=== PATIENT | female | born 1990 | race Caucasian/White ===

== ENCOUNTER 2018-11-16 13:52 | Emergency (ER) | payer OTHER, MEDICAID, SELFPAY ==
[2018-11-16] VITALS (10 sets, daily range): BP systolic 113–136; BP diastolic 67–90; PULSE 66–98; RESP 13–23; TEMP 37.1; O2SAT 97–100; BMI 22.7
--- NOTE | 2018-11-16 14:47 | ED.CHESTPAIN ---
HPI - Chest Pain General Chief Complaint: Chest Pain Stated Complaint: chest pain since 8 am/on chemo since sunday Time Seen by Provider: 11/16/18 14:47 Source: patient Mode of arrival: ambulatory Limitations: no limitations History of Present Illness HPI narrative: Patient is a 28-year-old female currently undergoing treatment for rectal cancer. She is taking a daily oral medication and a infusion every 3 weeks. Her last infusion was 1 week ago. She states that for the past several days in specifically since 0800 hr this morning she has had retrosternal chest pain. She states she has had a constant pain since about 1100 hr but that it has spikes and pain. She states it is sharp. Not worse with palpation or breathing or movement. Has never had anything like this before. States she does have some shortness of breath with exertion. Related Data Home Medications Medication Instructions Recorded Confirmed capecitabine 2,000 mg PO DAILY 11/16/18 11/16/18 ergocalciferol (vitamin D2) 1.25 mg PO QWEEK 11/16/18 11/16/18 [Vitamin D2] prochlorperazine maleate 10 mg PO Q6HR PRN 11/16/18 11/16/18 Allergies Allergy/AdvReac Type Severity Reaction Status Date / Time No Known Drug Allergies Allergy Verified 11/16/18 15:05 Review of Systems Constitutional Reports fatigue, Denies fever(s) and Denies headache(s) ENT Ears, Nose, Mouth, and Throat: Denies dizziness and Denies headache(s) Cardiovascular Reports chest pain, Denies diaphoresis, Denies syncope, Denies edema, Denies irregular heart rhythm, Denies leg edema, Denies palpitations, Reports dyspnea and Reports dyspnea on exertion Respiratory Denies cough, Reports dyspnea, Reports dyspnea on exertion and Denies wheezing Gastrointestinal Gastrointestinal: Denies abdominal pain, Denies nausea and Denies vomiting Genitourinary Denies dysuria Musculoskeletal Denies myalgias and Denies arthralgias Integumentary/Breasts Denies lesions and Denies rash Neurologic Denies dizziness, Denies syncope and Denies headache(s) Endocrine Reports fatigue and Denies palpitations Hematologic/Lymphatic Denies easy bleeding Allergic/Immunologic Denies wheezing PFSH Medical History Rectal cancer (Acute) Social History Smoking Status: Never smoker Exam Initial Vital Signs Initial Vital Signs: Vital Signs Temperature 98.7 F 11/16/18 14:02 Pulse Rate 70 11/16/18 14:02 Respiratory Rate 17 11/16/18 14:02 Blood Pressure 134/84 11/16/18 14:02 Pulse Oximetry 100 11/16/18 14:02 Const General: cooperative, healthy appearing, comfortable, well developed, well groomed and No acute distress Orientation: alert, awake and oriented x3 HENMT Head: normal to inspection and normocephalic Resp Effort & Inspection: no cough, not labored, no stridor, tachypneic, no tripod positioning and no use of accessory muscles Auscultation: clear to auscultation bilaterally Cardio Rate: regular rate Rhythm: regular rhythm Pulses: radial pulses present GI Inspection: non-distended Palpation: soft, No firm and No tender Back/Spine/Pelvis Back: No CVA tenderness Skin Lesions: no lesions Rashes: no rashes Neuro General: alert, awake and oriented x3 Cognition: normal cognition Speech: speech normal Extrem General: normal to inspection and capillary refill normal Course Orders Ordered: ED Orders 11/16/18 14:25 B Type Natriuretic Peptide Stat Basic Metabolic Panel Stat Complete Blood Count AUTO DIFF Stat D Dimer Stat Procalcitonin Stat Troponin I Stat 11/16/18 14:57 XR chest 1V Stat 11/16/18 15:26 CT angio chest PE protocol Stat Discontinued Medications Al Hydrox/Mg Hydrox/Simethicone 20 ml/ Lidocaine HCl 15 ml 0 ml PO NOW ONE Stop: 11/16/18 14:57 Last Admin: 11/16/18 15:06 Dose: 35 ml Sodium Chloride (Normal Saline 0.9%) 1,000 mls @ 1,000 mls/hr IV BOLUS ONE Stop: 11/16/18 16:24 Last Admin: 11/16/18 16:14 Dose: 1,000 mls/hr Morphine Sulfate (Morphine) 4 mg IV NOW ONE Stop: 11/16/18 16:17 Last Admin: 11/16/18 16:18 Dose: 4 mg Ondansetron HCl (Zofran) 4 mg IV NOW ONE Stop: 11/16/18 16:27 Last Admin: 11/16/18 16:26 Dose: 4 mg Vital Signs - 8 hr 11/16/18 14:02 11/16/18 14:40 11/16/18 15:26 Temperature 98.7 F Pulse Rate 70 75 77 Respiratory Rate 17 15 19 Blood Pressure 134/84 Blood Pressure [Left Arm] 129/78 126/81 Pulse Oximetry 100 100 100 11/16/18 16:00 11/16/18 17:08 11/16/18 17:30 Temperature Pulse Rate 98 H 69 66 Respiratory Rate 23 14 19 Blood Pressure Blood Pressure [Left Arm] 129/90 125/67 126/74 Pulse Oximetry 100 99 100 MDM - Chest Pain Lab Data Attestation: I reviewed the patient's lab results. Result diagrams: 11/16/18 14:25 11/16/18 14:25 Lab Results 11/16/18 11/16/18 11/16/18 Range/Units 14:25 14:25 14:25 WBC 9.3 (4.5-11.0) X10^3/uL RBC 4.68 (4.0-5.2) X10^6/uL Hgb 13.2 (12.0-16.0) g/dL Hct 39.4 (36-46) % MCV 84.3 (80-100) fL MCH 28.3 (26-34) PG MCHC 33.6 (30-36) % RDW 12.5 (11.6-14.8) % Plt Count 288 (150-400) X10^3/uL Neut % (Auto) 66.1 (50-75) % Lymph % (Auto) 21.8 L (25-40) % [place] % (Auto) 11.3 (3-14) % Eos % (Auto) 0.2 L (2-4) % Baso % (Auto) 0.6 (0-2) % Neut # (Auto) 6100 (7417-7075) /uL D-Dimer 3082 H (<230) ng/mL Sodium 134 L (137-145) mmol/L Potassium 3.7 (3.4-5.1) mmol/L Chloride 103 (98-107) mmol/L Carbon Dioxide 21 L (22-32) mmol/L BUN 9 (7-17) mg/dL Creatinine 0.50 L (0.52-1.04) mg/dL Estimated GFR > 60.0 (>60) mL/min BUN/Creatinine Ratio 18.0 (6-22) Glucose 113 H (70-100) mg/dL Calcium 8.7 (8.4-10.2) mg/dL Troponin I < 0.012 (0.01-0.034) ng/mL B-Natriuretic Peptide < 100 (<100) Procalcitonin (<0.5) ng/mL 11/16/18 Range/Units 14:25 WBC (4.5-11.0) X10^3/uL RBC (4.0-5.2) X10^6/uL Hgb (12.0-16.0) g/dL Hct (36-46) % MCV (80-100) fL MCH (26-34) PG MCHC (30-36) % RDW (11.6-14.8) % Plt Count (150-400) X10^3/uL Neut % (Auto) (50-75) % Lymph % (Auto) (25-40) % [place] % (Auto) (3-14) % Eos % (Auto) (2-4) % Baso % (Auto) (0-2) % Neut # (Auto) (8540-6412) /uL D-Dimer (<230) ng/mL Sodium (137-145) mmol/L Potassium (3.4-5.1) mmol/L Chloride (98-107) mmol/L Carbon Dioxide (22-32) mmol/L BUN (7-17) mg/dL Creatinine (0.52-1.04) mg/dL Estimated GFR (>60) mL/min BUN/Creatinine Ratio (6-22) Glucose (70-100) mg/dL Calcium (8.4-10.2) mg/dL Troponin I (0.01-0.034) ng/mL B-Natriuretic Peptide (<100) Procalcitonin < 0.05 (<0.5) ng/mL Imaging Data Chest x-ray: Radiologist's impression: PROCEDURE: XR CHEST 1V INDICATIONS: Chest pain TECHNIQUE: One view of the chest was acquired. COMPARISON: None. FINDINGS: Surgical changes and devices: Port-A-Cath in normal position from right sided approach. Lungs and pleura: No pleural effusions or pneumothorax. Lungs are abnormal with a mild prominence of the interstitium but this is in the setting of relatively prominently reduced inspiratory volume.. Mediastinum: Mediastinal contours appear normal. Heart size is normal. Bones and chest wall: No suspicious bony lesions. Overlying soft tissues appear unremarkable. IMPRESSION: Reduced inspiration, Port-A-Cath in normal position. Mild interstitial prominence but this may simply reflect mild atelectasis from reduced inspiration. Dictated by: Sotero Herndon M.D. on 11/16/2018 at 15:53 Approved by: Sotero Herndon M.D. on 11/16/2018 at 15:54 CT scan - chest: Radiologist's impression: PROCEDURE: CT ANGIO CHEST PE PROTOCOL INDICATIONS: Chest pain, shortness of breath, tachycardia TECHNIQUE: After the administration of intravenous contrast, 2 mm thick sections acquired from the pulmonary apices to the posterior costophrenic angles. 3-dimensional maximum intensity projection (MIP) coronal and sagittal reformats were then acquired through the thorax. For radiation dose reduction, the following was used: automated exposure control, adjustment of mA and/or kV according to patient size. COMPARISON: None. FINDINGS: Image quality: Excellent. Pulmonary arteries: Pulmonary arteries are normal in size, and demonstrate no intraluminal filling defects to suggest central pulmonary embolism. Lungs and pleura: Lungs are clear except for atelectasis related to a moderately large right pleural effusion layering posteriorly, simple in appearance and water in radiodensity.. No pleural effusions or pneumothorax. Central and peripheral airways are patent. Mediastinum: Heart size is normal, without pericardial effusion. No mediastinal or hilar adenopathy. Thoracic aorta is normal in caliber and enhancement. Esophagus is normal in caliber, without hiatal hernia. Bones and chest wall: No suspicious bony lesions. Ribs and thoracic spine appear intact throughout. Thyroid gland appears normal. No axillary or supraclavicular adenopathy. A Port-A-Cath from right sided approach extends normally into the superior vena cava and traverses inferiorly into the upper right atrium. Abdomen: Visualized upper abdominal solid organs appear normal in the early arterial phase of enhancement. Moderate ascites is seen within the right and left upper abdomen and no peritoneal masses are seen. Radiodensity of the fluid within the peritoneal space is that of water. Incidental note is made of a right posterior hepatic segment presumed cyst, measuring only approximately 5 mm in diameter best seen on series 4 image 114. IMPRESSION: 1. Water density simple appearing moderately large right pleural effusion. No pulmonary embolus seen. 2. Bilateral moderate collections of peritoneal fluid are seen at the right and left upper abdomen in the small area of the abdomen included on this study. The peritoneal free fluid appears simple in character and water in radiodensity. 3. The Port-A-Cath from right sided approach traverses the superior vena cava and terminates with its inferior tip in the right atrium. Dictated by: Sotero Herndon M.D. on 11/16/2018 at 16:18 Approved by: Sotero Herndon M.D. on 11/16/2018 at 16:24 ECG Data Attestation: I personally reviewed and interpreted this ECG as follows: Prior ECG tracings: not available for review Interpretation: Sinus rhythm Ventricular rate is 68 Normal axis Normal intervals Normal QRS Normal QTC No ST T wave changes MDM Narrative Medical decision making narrative: Patient is tachypneic to the low 20s however not hypoxic. Does have a pleural effusion on the right side which could potentially be the cause of all of her symptoms that she presented with today. I do not feel like she needs an emergent thoracentesis because she is not hypoxic and not in any respiratory distress. Unsure the etiology of this effusion however could be the result of her cancer, recent port placement, recent egg harvesting prior to chemotherapy. Low suspicion for ACS. No findings of pulmonary embolism on the CT scan. EKG is unremarkable. She got minor relief from the GI cocktail. I discussed the case with the on-call staff attorney at the [facility] who agreed with holding on any thoracentesis currently. The on-call oncologist will talk with her primary oncologist regarding the symptoms. I had the discussion with the patient and the family at bedside regarding the lack of definitive diagnosis however we did discuss the pertinent negative findings. Patient was given return precautions. She expressed understanding and agreement with plan. Discharge Plan Departure Patient Disposition: Home Clinical Impression: Pleural effusion Instructions: DI for Pleural Effusion Activity Restrictions/Additional Instructions: The oncologist special education case manager at the [facility] stated that she will contact your oncologist to let her know of the findings today. I do recommend that on Sunday you follow-up with this by calling your oncologist. If your symptoms worsen or you develop any new symptoms specifically worsening problems breathing especially with exerting your self please return to the emergency department for further evaluation. Prescriptions: No Action prochlorperazine maleate 10 mg tablet 10 mg PO Q6HR PRN (Reason: Nausea) RF: 0 ergocalciferol (vitamin D2) [Vitamin D2] 50,000 unit capsule 1.25 mg PO QWEEK RF: 0 capecitabine 500 mg tablet 2,000 mg PO DAILY RF: 0
--- NOTE | 2018-11-16 14:57 | DI.RAD.S_ITS ---
PROCEDURE: XR CHEST 1V INDICATIONS: Chest pain TECHNIQUE: One view of the chest was acquired. COMPARISON: None. FINDINGS: Surgical changes and devices: Port-A-Cath in normal position from right sided approach. Lungs and pleura: No pleural effusions or pneumothorax. Lungs are abnormal with a mild prominence of the interstitium but this is in the setting of relatively prominently reduced inspiratory volume.. Mediastinum: Mediastinal contours appear normal. Heart size is normal. Bones and chest wall: No suspicious bony lesions. Overlying soft tissues appear unremarkable. IMPRESSION: Reduced inspiration, Port-A-Cath in normal position. Mild interstitial prominence but this may simply reflect mild atelectasis from reduced inspiration. Dictated by: Sotero Herndon M.D. on 11/16/2018 at 15:53 Approved by: Sotero Herndon M.D. on 11/16/2018 at 15:54
[2018-11-16 15:05] LABS: Add Manual Diff / Slide Review NO; Basophils Percent Auto 0.6 % (0-2); Eosinophils Percent Auto 0.2 % (2-4); Hematocrit 39.4 % (36-46); Hemoglobin 13.2 g/dL (12.0-16.0); Lymphocytes Percent Auto 21.8 % (25-40); Mean Corpuscular HGB Conc 33.6 % (30-36); Mean Corpuscular Hemoglobin 28.3 PG (26-34); Mean Corpuscular Volume 84.3 fL (80-100); Monocytes Percent Auto 11.3 % (3-14); Neutrophils Absolute Auto 6100 /uL (1500-7000); Neutrophils Percent Auto 66.1 % (50-75); Platelet Count 288 X10^3/uL (150-400); Red Blood Cell Count 4.68 X10^6/uL (4.0-5.2); Red Cell Distribution Width 12.5 % (11.6-14.8); White Blood Cell Count 9.3 X10^3/uL (4.5-11.0)
[2018-11-16] MEDS: MAG HYDROX/ALUMINUM/SIMETH SUS 20 ML, LIDOCAINE VISCOUS 2% 15 ML PO (15:06)
[2018-11-16 15:12] LABS: Blood Urea Nitrogen 9 mg/dL (7-17); Calcium 8.7 mg/dL (8.4-10.2); Carbon Dioxide 21 mmol/L (22-32); Chloride 103 mmol/L (98-107); Estimated Glomerular Filt Rate > 60.0 mL/min (>60); Glucose 113 mg/dL (70-100); HEMOLYSIS 28 (0-50); Potassium 3.7 mmol/L (3.4-5.1); Sodium 134 mmol/L (137-145)
[2018-11-16 15:16] LABS: D Dimer 3082 ng/mL (<230)
--- NOTE | 2018-11-16 15:26 | DI.CT.S_ITS ---
PROCEDURE: CT ANGIO CHEST PE PROTOCOL INDICATIONS: Chest pain, shortness of breath, tachycardia TECHNIQUE: After the administration of intravenous contrast, 2 mm thick sections acquired from the pulmonary apices to the posterior costophrenic angles. 3-dimensional maximum intensity projection (MIP) coronal and sagittal reformats were then acquired through the thorax. For radiation dose reduction, the following was used: automated exposure control, adjustment of mA and/or kV according to patient size. COMPARISON: None. FINDINGS: Image quality: Excellent. Pulmonary arteries: Pulmonary arteries are normal in size, and demonstrate no intraluminal filling defects to suggest central pulmonary embolism. Lungs and pleura: Lungs are clear except for atelectasis related to a moderately large right pleural effusion layering posteriorly, simple in appearance and water in radiodensity.. No pleural effusions or pneumothorax. Central and peripheral airways are patent. Mediastinum: Heart size is normal, without pericardial effusion. No mediastinal or hilar adenopathy. Thoracic aorta is normal in caliber and enhancement. Esophagus is normal in caliber, without hiatal hernia. Bones and chest wall: No suspicious bony lesions. Ribs and thoracic spine appear intact throughout. Thyroid gland appears normal. No axillary or supraclavicular adenopathy. A Port-A-Cath from right sided approach extends normally into the superior vena cava and traverses inferiorly into the upper right atrium. Abdomen: Visualized upper abdominal solid organs appear normal in the early arterial phase of enhancement. Moderate ascites is seen within the right and left upper abdomen and no peritoneal masses are seen. Radiodensity of the fluid within the peritoneal space is that of water. Incidental note is made of a right posterior hepatic segment presumed cyst, measuring only approximately 5 mm in diameter best seen on series 4 image 114. IMPRESSION: 1. Water density simple appearing moderately large right pleural effusion. No pulmonary embolus seen. 2. Bilateral moderate collections of peritoneal fluid are seen at the right and left upper abdomen in the small area of the abdomen included on this study. The peritoneal free fluid appears simple in character and water in radiodensity. 3. The Port-A-Cath from right sided approach traverses the superior vena cava and terminates with its inferior tip in the right atrium. Dictated by: Sotero Herndon M.D. on 11/16/2018 at 16:18 Approved by: Sotero Herndon M.D. on 11/16/2018 at 16:24
[2018-11-16 15:31] LABS: Troponin I < 0.012 ng/mL (0.01-0.034)
--- NOTE | 2018-11-16 15:51 | PC.NURSE ---
reports, constant sharp chest pain, onset today. with shortness of breath. hx of rectal cancer, had chemo last sunday, denies long travel. denies fever
[2018-11-16 16:08] LABS: B Type Natriuretic Peptide < 100 (<100)
[2018-11-16 16:12] LABS: Procalcitonin < 0.05 ng/mL (<0.5)
[2018-11-16] MEDS: SODIUM CHLORIDE 0.9% 1,000 ML 1000 ML IV (16:14)
[2018-11-16] MEDS: MORPHINE 4 MG/ML INJ IV (16:18)
[2018-11-16] MEDS: ONDANSETRON 4 MG/2 ML INJ IV (16:26)
== END 2018-11-16 18:42 | disposition home or self-care (01) ==
PROVIDERS: Emergency Provider Emergency Medicine
DX: J90 Pleural effusion, not elsewhere classified (principal)
CPT/HCPCS: 36415; 36591; 71045; 71275; 80048; 83880; 84145; 84484; 85025; 85379; 93005; 96374; 96375; 99284; 99285; J2270; J2405

== ENCOUNTER 2019-07-28 19:03 | Emergency (ER) | payer OTHER, MEDICAID, SELFPAY ==
[2019-07-28 19:07] VITALS: BP 131/92; PULSE 78; RESP 18; TEMP 36.7; O2SAT 100
[2019-07-28] MEDS: SODIUM CHLORIDE 0.9% 1,000 ML 150 ML IV (19:51)
[2019-07-28 19:52] LABS: Add Manual Diff / Slide Review NO; Basophils Absolute Auto 0 /uL (0-100); Basophils Percent Auto 0.9 % (0-2); Eosinophils Absolute Auto 100 /uL (0-450); Eosinophils Percent Auto 4.2 % (2-4); Hematocrit 34.2 % (36-46); Hemoglobin 11.1 g/dL (12.0-16.0); Lymphocytes Absolute Auto 700 /uL (1100-4500); Lymphocytes Percent Auto 18.5 % (25-40); Mean Corpuscular HGB Conc 32.4 % (30-36); Mean Corpuscular Hemoglobin 26.1 PG (26-34); Mean Corpuscular Volume 80.5 fL (80-100); Monocytes Absolute Auto 600 /uL (0-900); Monocytes Percent Auto 16.4 % (3-14); Neutrophils Absolute Auto 2100 /uL (1500-7000); Platelet Count 354 X10^3/uL (150-400); Red Blood Cell Count 4.25 X10^6/uL (4.0-5.2); Red Cell Distribution Width 17.6 % (11.6-14.8); White Blood Cell Count 3.5 X10^3/uL (4.5-11.0)
[2019-07-28 19:57] VITALS: BP 127/71; PULSE 70; RESP 18; O2SAT 98
[2019-07-28 20:03] LABS: Alanine Aminotransferase 13 IU/L (9-52); Albumin 4.2 g/dL (3.5-5.0); Albumin Globulin Ratio 1.2 (1.0-2.8); Alkaline Phosphatase 102 U/L (38-126); Aspartate Aminotransferase 26 IU/L (14-36); Bilirubin Total 0.4 mg/dL (0.2-1.3); Blood Urea Nitrogen 6 mg/dL (7-17); Calcium 9.7 mg/dL (8.4-10.2); Carbon Dioxide 26 mmol/L (22-32); Chloride 102 mmol/L (98-107); Estimated Glomerular Filt Rate > 60.0 mL/min (>60); Globulin 3.5 g/dL (1.7-4.1); Glucose 94 mg/dL (70-100); HEMOLYSIS < 15 (0-50); Lipase 130 U/L (23-300); Potassium 3.8 mmol/L (3.4-5.1); Sodium 138 mmol/L (137-145); Total Protein 7.7 g/dL (6.3-8.2)
[2019-07-28 20:04] LABS: Lactate (Lactic Acid) 1.2 mmol/L (0.7-2.1)
--- NOTE | 2019-07-28 20:10 | ED_ITS ---
HPI - Abdominal Pain General Chief Complaint: Abdominal Pain Stated Complaint: LOWER RIGHT PAIN Time Seen by Provider: 07/28/19 20:10 Source: patient and family Mode of arrival: ambulatory Limitations: no limitations History of Present Illness HPI narrative: This is a 28-year-old female comes in with right lower abdominal pain. Patient has rectal cancer which was treated with chemo and radiation. Her last dose of chemo was and leg May. She then had a resection and ileostomy placed on July 08. She developed 2 areas of abscess, Um 2 weeks later and was seen on the 20 of July at the Emergency Department she was put on Cipro and Flagyl p.o. as what sounds like a dose of Zosyn in the emergency d epartment. Patient has not had any fevers since she has been on p.o. antibiotics. She did have some before. She has continued to have abdominal pain and has been increasing in the last 12 hours. Patient has not been having any nausea or vomiting, she has had good output from her ileostomy without any blood or melena. She does have a small amount of mucus still from the rectum. Patient states she was told she had some leukocyte esterase in her urine. She has not had any other urinary symptoms. Related Data Home Medications Medication Instructions Recorded Confirmed capecitabine 2,000 mg PO DAILY 11/16/18 11/16/18 ergocalciferol (vitamin D2) 1.25 mg PO QWEEK 11/16/18 11/16/18 [Vitamin D2] prochlorperazine maleate 10 mg PO Q6HR PRN 11/16/18 11/16/18 Previous Rx's Medication Instructions Recorded acetaminophen-codeine 1 tab PO Q4-6H PRN #10 tab 11/16/18 [Tylenol-Codeine #3] ciprofloxacin HCl 500 mg PO BID #10 tab 07/29/19 metronidazole [Flagyl] 500 mg PO TID #15 tab 07/29/19 Allergies Allergy/AdvReac Type Severity Reaction Status Date / Time No Known Drug Allergies Allergy Verified 11/16/18 15:05 Review of Systems Review of Systems ROS Unobtainable: All systems reviewed & are unremarkable except as noted in HPI and below Constitutional Constitutional: Denies chills, Denies fever(s), Denies lethargy and Denies weakness Cardiovascular Cardiovascular: Denies chest pain and Denies dyspnea Respiratory Respiratory: Denies dyspnea Gastrointestinal Gastrointestinal: Reports abdominal pain (RLQ), Denies melena, Denies hematochezia, Denies change in bowel habits, Denies constipation, Denies diarrhea, Denies nausea, Denies vomiting and Reports other (has osteomy with good output) Genitourinary Genitourinary: Denies hematuria, Denies urinary frequency, Denies dysuria, Denies flank pain, Denies urinary incontinence, Denies urinary hesitancy and Denies urinary urgency Integumentary/Breasts Skin/Breast: Denies erythema, Denies rash and Reports other (incision healing) Neurologic Neurologic: Denies weakness [facility] Medical History Ileostomy in place (Acute) Rectal cancer (Acute) Social History Smoking Status: Never smoker Social History Smoking Status: Never smoker Exam Narrative Exam Narrative: GENERAL: Alert and oriented x three, thin, well-appearing female in mild distress. HEENT: Head normocephalic, atraumatic, EOMI, pupils reactive, face symmetric, m oist mucous membranes NECK: Supple, full range of motion CARDIOVASCULAR: Regular rate and rhythm without murmurs, rubs or gallops. RESPIRATORY: Breath sounds equal bilaterally, no wheezes rales or rhonchi. ABDOMEN: Soft, patient has right lower quadrant tenderness. she has multiple incisions that appear to be healing well in her lower abdomen, no erythema, no discharge from the incision sites. Normoactive bowel sounds all 4 quadrants. No guarding or rebound, rigidity, no mass. : No CVA tenderness EXTREMITIES: Normal range of motion, no clubbing or edema. Neurovascularly intact NEUROLOGICAL: Cranial nerves II through XII grossly intact. Moving all extremities SKIN: Warm, dry, no petechiae, no rashes or lesions. Initial Vital Signs Initial Vital Signs: Vital Signs Temperature 98.0 F 07/28/19 19:07 Pulse Rate 78 07/28/19 19:07 Respiratory Rate 18 07/28/19 19:07 Blood Pressure 131/92 H 07/28/19 19:07 Pulse Oximetry 100 07/28/19 19:07 Course Orders Ordered: ED Orders 07/28/19 20:51 CT abdomen pelvis w con Stat Discontinued Medications Sodium Chloride (Normal Saline 0.9%) 1,000 mls @ 150 mls/hr IV BOLUS ONE Stop: 07/29/19 02:17 Last Infusion: 07/29/19 00:27 Dose: 0 mls/hr Documented by: Admin: 07/28/19 19:51 Dose: 150 mls/hr Documented by: LOLITA Ketorolac Tromethamine (Toradol) 15 mg IV NOW ONE Stop: 07/28/19 21:02 Last Admin: 07/28/19 21:09 Dose: 15 mg Documented by: PATRICIA Vital Signs Vital signs: Vital Signs - 8 hr 07/28/19 23:17 07/29/19 00:28 Pulse Rate 76 77 Respiratory Rate 16 16 Blood Pressure 112/68 Blood Pressure [Right Arm] 122/91 H Pulse Oximetry 97 99 MDM - Abdominal Pain Lab Data Attestation: I reviewed the patient's lab results. Result diagrams: 07/28/19 19:26 07/28/19 19:26 Labs: Lab Results 07/28/19 07/28/19 07/28/19 Range/Units 19:26 19:26 19:26 WBC 3.5 L (4.5-11.0) X10^3/uL RBC 4.25 (4.0-5.2) X10^6/uL Hgb 11.1 L (12.0-16.0) g/dL Hct 34.2 L (36-46) % MCV 80.5 (80-100) fL MCH 26.1 (26-34) PG MCHC 32.4 (30-36) % RDW 17.6 H (11.6-14.8) % Plt Count 354 (150-400) X10^3/uL Neut % (Auto) 60.0 (50-75) % Lymph % (Auto) 18.5 L (25-40) % [place] % (Auto) 16.4 H (3-14) % Eos % (Auto) 4.2 H (2-4) % Baso % (Auto) 0.9 (0-2) % Neut # (Auto) 2100 (3079-3455) /uL Lymph # (Auto) 700 L (2360-9768) /uL [place] # (Auto) 600 (0-900) /uL Eos # (Auto) 100 (0-450) /uL Baso # (Auto) 0 (0-100) /uL PT 13.5 H (10.1-12.7) SECONDS INR 1.2 (0.9-1.3) APTT 35 (26.4-36.2) SECONDS Sodium 138 (137-145) mmol/L Potassium 3.8 (3.4-5.1) mmol/L Chloride 102 (98-107) mmol/L Carbon Dioxide 26 (22-32) mmol/L BUN 6 L (7-17) mg/dL Creatinine 0.50 L (0.52-1.04) mg/dL Estimated GFR > 60.0 (>60) mL/min BUN/Creatinine Ratio 12.0 (6-22) Glucose 94 (70-100) mg/dL Lactate (0.7-2.1) mmol/L Calcium 9.7 (8.4-10.2) mg/dL Total Bilirubin 0.4 (0.2-1.3) mg/dL AST 26 (14-36) IU/L ALT 13 (9-52) IU/L Alkaline Phosphatase 102 (38-126) U/L Total Protein 7.7 (6.3-8.2) g/dL Albumin 4.2 (3.5-5.0) g/dL Globulin 3.5 (1.7-4.1) g/dL Albumin/Globulin Ratio 1.2 (1.0-2.8) Lipase 130 (23-300) U/L Procalcitonin (<0.5) ng/mL 07/28/19 07/28/19 Range/Units 19:26 19:26 WBC (4.5-11.0) X10^3/uL RBC (4.0-5.2) X10^6/uL Hgb (12.0-16.0) g/dL Hct (36-46) % MCV (80-100) fL MCH (26-34) PG MCHC (30-36) % RDW (11.6-14.8) % Plt Count (150-400) X10^3/uL Neut % (Auto) (50-75) % Lymph % (Auto) (25-40) % [place] % (Auto) (3-14) % Eos % (Auto) (2-4) % Baso % (Auto) (0-2) % Neut # (Auto) (0562-5888) /uL Lymph # (Auto) (7996-8811) /uL [place] # (Auto) (0-900) /uL Eos # (Auto) (0-450) /uL Baso # (Auto) (0-100) /uL PT (10.1-12.7) SECONDS INR (0.9-1.3) APTT (26.4-36.2) SECONDS Sodium (137-145) mmol/L Potassium (3.4-5.1) mmol/L Chloride (98-107) mmol/L Carbon Dioxide (22-32) mmol/L BUN (7-17) mg/dL Creatinine (0.52-1.04) mg/dL Estimated GFR (>60) mL/min BUN/Creatinine Ratio (6-22) Glucose (70-100) mg/dL Lactate 1.2 (0.7-2.1) mmol/L Calcium (8.4-10.2) mg/dL Total Bilirubin (0.2-1.3) mg/dL AST (14-36) IU/L ALT (9-52) IU/L Alkaline Phosphatase (38-126) U/L Total Protein (6.3-8.2) g/dL Albumin (3.5-5.0) g/dL Globulin (1.7-4.1) g/dL Albumin/Globulin Ratio (1.0-2.8) Lipase (23-300) U/L Procalcitonin < 0.05 (<0.5) ng/mL Point of care testing: Urine Dip Bedside Urine Glucose Negative Bedside Urine Bilirubin - Negative Bedside Urine Ketone - Negative Urine Specific [place] 1.015 Bedside Urine Occult Blood - Negative Bedside Urine pH 6.0 Bedside Urine Protein - Negative Bedside Urine Urobilinogen - Negative Bedside Urine Nitrite - Negative Bedside Urine Leukocytes - Negative Esterase MDM Narrative Medical decision making narrative: Ventral midline inferior abdominal abscess measuring 2 x 1 x 4.5 cm with subtle peripheral enhancement. No lymphadenopathy is evident. Findings suggestive of distal colon carcinoma consistent with known history. No evidence for per for obstruction. Intra hepatic hypodensity of unc lear etiology. CT findings were discussed with Dr. Royal rebolledo, he recommends continuing Cipro and Flagyl for 5 additional days. Having patient call her general surgeon 1st thing in the morning to discuss the plan make sure every month on the same page and return for evaluation shortly. Patient is comfortable with this plan. Discharge Plan Departure Patient Disposition: Home Clinical Impression: Abdominal abscess Discharge Date/Time: 07/29/19 00:28 Activity Restrictions/Additional Instructions: Call tomorrow to discuss the plan with your surgeon. Continue ciprofloxacin and Flagyl for 5 additional days. Return to the emergency department for new or worsening symptoms, fevers greater than 100.4 F, increasing or worsening abdominal pain, persistent vomiting, black or bloody stools, you're not having any output from her ostomy, difficulty with urination, inability to urinate or other new or concerning symptoms. Prescriptions: New ciprofloxacin HCl 500 mg tablet 500 mg PO BID Qty: 10 RF: 0 metronidazole [Flagyl] 500 mg tablet 500 mg PO TID Qty: 15 RF: 0 No Action prochlorperazine maleate 10 mg tablet 10 mg PO Q6HR PRN (Reason: Nausea) RF: 0 ergocalciferol (vitamin D2) [Vitamin D2] 50,000 unit capsule 1.25 mg PO QWEEK RF: 0 capecitabine 500 mg tablet 2,000 mg PO DAILY RF: 0 acetaminophen-codeine [Tylenol-Codeine #3] 300-30 mg tablet 1 tab PO Q4-6H PRN (Reason: pain) Qty: 10 RF: 0
[2019-07-28 20:12] LABS: INR 1.2 (0.9-1.3); Prothrombin Time 13.5 SECONDS (10.1-12.7)
[2019-07-28 20:15] LABS: PTT Partial Thromboplastin Tim 35 SECONDS (26.4-36.2)
--- NOTE | 2019-07-28 20:51 | DI.CT.S_ITS ---
PROCEDURE: CT ABDOMEN PELVIS W CON INDICATIONS: had cancer, multi abscesses s/p sx, increasing pain. Prior colon resection July 08, 2019. TECHNIQUE: After the administration of oral and intravenous contrast, 5 mm thick sections acquired from the diaphragms to the symphysis. 5 mm thick coronal and sagittal reformats were performed. For radiation dose reduction, the following was used: automated exposure control, adjustment of mA and/or kV according to patient size. COMPARISON: None. FINDINGS: Image quality: Excellent. ABDOMEN: Lung bases: Lung bases are clear. Heart size is normal. Solid organs: Liver is normal in size and enhancement. Numerous surface liver clips suggests previous surface liver resections. No liver masses identified. Tiny cyst versus hemangioma in the right lobe. Gallbladder is surgically absent. Biliary system is non-dilated. Pancreas enhances normally. Spleen is normal in size and enhancement. No adrenal nodules. Kidneys are normal in size and enhancement, without hydronephrosis. Peritoneum and bowel: Partial colectomy with loop ileostomy. Nondilated bowel loops. No free air, free fluid, or perineal abscess cavity. Stomach, small bowel, and colon loops are normal in caliber and wall thickness. No free fluid or air or intra-abdominal abscess cavity. Nodes and vessels: No retroperitoneal or mesenteric adenopathy. Aorta and inferior vena cava are normal in caliber. Miscellaneous: No ventral hernias. There is a thin-walled abdominal wall fluid collection in the midline in a vertical configuration in the pelvis which measures approximately 5.1x 1.5 x 1.2 cm. It is minimally peripherally enhancing. There is minimal associated subcutaneous fluid. PELVIS: Genitourinary: Bladder wall thickness is normal. Miscellaneous: No inguinal hernias or adenopathy. Bones: No suspicious bony lesions. No vertebral body compression fractures. IMPRESSION: 1. Recent partial colectomy with ileostomy. 2. Thin midline anterior low abdominal wall fluid collection which minimally enhances. This may simply represent postoperative fluid. Infected fluid is not excluded. If desired, the fluid should be amenable to ultrasound-guided fine needle aspiration. It is not large enough for placement of a percutaneous drain. Comment: Final report is concordant with preliminary interpretation provided by [facility]. Dictated by: Prabhjot Weber M.D. on 07/29/2019 at 8:33 Approved by: Prabhjot Weber M.D. on 07/29/2019 at 8:53
[2019-07-28 21:00] VITALS: BP 125/91; PULSE 76; RESP 16; O2SAT 100
[2019-07-28] MEDS: KETOROLAC 60 MG/2 ML VIAL 15 MG IV (21:09)
[2019-07-28 21:34] LABS: Procalcitonin < 0.05 ng/mL (<0.5)
[2019-07-28 23:17] VITALS: BP 122/91; PULSE 76; RESP 16; O2SAT 97
[2019-07-29 00:28] VITALS: BP 112/68; PULSE 77; RESP 16; O2SAT 99
== END 2019-07-29 00:28 | disposition home or self-care (01) ==
PROVIDERS: Emergency Provider Emergency Medicine
DX: L02.211 Cutaneous abscess of abdominal wall (principal)
CPT/HCPCS: 36591; 74177; 80053; 81003; 83605; 83690; 84145; 85025; 85610; 85730; 96361; 96374; 99283; 99285; J1642; J1885